=== PATIENT | male | born 1975 | race Caucasian/White ===

== ENCOUNTER 2017-04-11 22:05 | Emergency (ER) | payer OTHER ==
[~2017-04-11 22:05] MED LIST: AMIT1TAB79 PO; ASPI81CH7 CHEW; DIAZ5 PO; TRAM50TA PO; ZOLP10TA3 PO
[2017-04-11 22:09] VITALS: BP 165/87; PULSE 76; RESP 16; TEMP 98.4; O2SAT 98
--- NOTE | 2017-04-11 22:48 | PD ---
Physical Exam Time Seen by Provider: 22:48 Narrative 42yo twisted L ankle while walking 3 hours ago. Patient seen in triage. VS reviewed. Awaiting bed placement. Data Data Last Documented VS Vital Signs Date Time Temp Pulse Resp B/P Pulse Ox O2 Delivery O2 Flow Rate FiO2 04/11/17 22:09 98.4 76 16 165/87 98 Room Air MDM Supervised Visit with NATHANIEL: Danika Cam Apr 11, 2017 22:48
--- NOTE | 2017-04-11 23:59 | RADRPT ---
EXAM DATE/TIME: 04/11/2017 23:26 [facility] COMPARISON: No previous studies available for comparison. INDICATIONS : Left lateral ankle pain, fell in a hole and twisted ankle. MEDICAL HISTORY : None. SURGICAL HISTORY : None. ENCOUNTER: Initial ACUITY: 1 day PAIN SCORE: 10/10 LOCATION: Left lateral ankle FINDINGS: Three view exam was performed of the left ankle. The bony structures are in normal alignment. No ev idence of fracture, dislocation, or soft tissue swelling. The ankle mortise is intact. No radiopaqu e foreign bodies are seen. Bony mineralization is normal. CONCLUSION: Unremarkable examination of the left ankle. Magen Garduno MD on April 11, 2017 at 23:58 Board Certified Radiologist. This report was verified electronically.
[2017-04-12] MEDS ORDERED: IBUP-232 PO (00:29)
[2017-04-12] MEDS ORDERED: ACETAMINOPHEN/HYDROcodone 325 MG/5 MG TAB PO ONE (00:30)
--- NOTE | 2017-04-12 00:30 | PD ---
HPI Chief Complaint: Injury Time Seen by Provider: 23:57 Travel History International Travel<30 days: No Contact w/Intl Traveler<30days: No Traveled to known affect area: No History of Present Illness HPI 42 yo M c/o of L ankle pain following hyper-inversion injury which occurred after patient stepped [place]. No other injury to report. Pain is constant and worse with ambulation such that he has required assistance merely to ambulate. Injury occurred approximately 6 hours prior to arrival. PFSH Past Medical History Cancer: No Cardiovascular Problems: Yes (MURMUR) Diabetes: No Diminished Hearing: No Endocrine: No Genitourinary: No Hepatitis: No Hiatal Hernia: No Immune Disorder: No Musculoskeletal: No Neurologic: Yes (CERVICAL BONE SPIR) Psychiatric: No Respiratory: No Immunizations Current: No Thyroid Disease: No Past Surgical History Abdominal Surgery: Yes (APPY) AICD: No Appendectomy: Yes Joint Replacement: No Pacemaker: No Social History Alcohol Use: No Tobacco Use: No Substance Use: No Allergies-Medications (Allergen,Severity, Reaction): Coded Allergies: Penicillin (Verified Allergy, Severe, Anaphylaxis, 04/11/17) Reported Meds & Prescriptions Reported Meds & Active Scripts Active Ibuprofen 600 Mg Tab 600 Mg PO Q8HR PRN 4 Days Valium (Diazepam) 5 Mg Tab 5 Mg PO BID PRN TAKE 1 TABLET 30 - 45 MINUTES PRIOR TO STUDY, THEN 1 DURING STUDY NEEDED FOR ANXIETY Elavil (Amitriptyline HCl) 25 Mg Tab 1 Tab PO HS Reported Aspirin Children's (Aspirin) 81 Mg Chew 81 Mg CHEW DAILY Zolpidem (Zolpidem Tartrate) 10 Mg Tab 10 Mg PO HS PRN Tramadol (Tramadol HCl) 50 Mg Tab 100 Mg PO Q6H PRN Review of Systems General / Constitutional: No: Fever Musculoskeletal: Positive: Pain Physical Exam Narrative GENERAL: 42 yo M, WNWD, NAD SKIN: Warm and dry. HEAD: Atraumatic. Normocephalic. GASTROINTESTINAL: Abdomen soft, non-tender, nondistended. Hepatic and splenic margins not palpable. MUSCULOSKELETAL: Extremities without clubbing, cyanosis, or edema. No obvious deformities. Minimal TTP dorsal aspect L ankle without gross deformity. NEUROLOGICAL: Awake and alert. No obvious cranial nerve deficits. Motor grossly within normal limits. Five out of 5 muscle strength in the arms and legs. Normal speech. PSYCHIATRIC: Appropriate mood and affect; insight and judgment normal. Data Data Last Documented VS Vital Signs Date Time Temp Pulse Resp B/P Pulse Ox O2 Delivery O2 Flow Rate FiO2 04/11/17 22:09 98.4 76 16 165/87 98 Room Air VS reviewed Orders Ankle, Complete ([id number]) (04/11/17 ) MDM Medical Decision Making Medical Screen Exam Complete: Yes Emergency Medical Condition: Yes Differential Diagnosis ankle sprain, fracture, contusion Narrative Course Air splint and crutches supplied. Follow up with orthopedics. Ankle x-rays: no fracture Diagnosis Primary Impression: Left ankle injury Qualified Code: S99.912A - Left ankle injury, initial encounter Referrals: Reece Perla MD 2 days Additional Instructions: You have a choice when it comes to health care, and we are glad that you chose [facility]. Hopefully, we have met your expectations on today's visit. You are welcome to return to [facility] at any time, as we are committed to meeting the health care needs of our community. Med/Other Pt SpecificInfo: Prescription(s) given Scripts Ibuprofen 600 Mg [id number] Mg PO Q8HR PRN (PAIN) 4 Days Ref 0 Prov:Hiram Gavin MD 04/12/17 Disposition: 01 DISCHARGE HOME Condition: Stable Hiram Gavin MD Apr 12, 2017 00:29
== END 2017-04-12 01:18 | disposition home or self-care (01) ==
LOC: NEPD 22:05
DX: S99.912A Unspecified injury of left ankle, initial encounter (principal); X50.1XXA Overexertion from prolonged static or awkward postures, initial encounter; Y93.01 Activity, walking, marching and hiking; Y92.007 Garden or yard of unspecified non-institutional (private) residence as the place of occurrence of the external cause; Z88.0 Allergy status to penicillin
CPT/HCPCS: 73610; 99283; E0113; L1906